=== PATIENT | female | born 1990 | race Caucasian/White ===

== ENCOUNTER 2023-02-17 08:34 | Outpatient (CLI) | payer OTHER, SELFPAY ==
--- NOTE | 2023-02-17 08:45 | CRLHL7_ITS ---
For Patients: As a result of the Century Cures Act, medical imaging exams and procedure reports are released immediately into your electronic medical record. You may view this report before your referring provider. If you have questions, please contact your health care provider. LEFT DIGITAL DIAGNOSTIC MAMMOGRAM WITH TOMOSYNTHESIS AND COMPUTER-AIDED DETECTION LEFT BREAST ULTRASOUND INDICATION: 33-year-old female. Pain and fullness lower outer quadrant LEFT breast for two weeks. No personal or family history of breast cancer biopsies. TECHNIQUE: CC and MLO views were obtained. This digital study was evaluated with the assistance of computer-aided detection. Digital breast tomosynthesis utilized in interpretation. FINDINGS: Breast composition: Scattered fibroglandular densities. No underlying mass. No architecture distortion. No suspicious microcalcifications. Ultrasound will be performed for further evaluation of the focal breast pain and fullness in the lower outer quadrant. Please see breast ultrasound from the same date. Negative unilateral LEFT breast mammogram. ULTRASOUND: Directed LEFT breast ultrasound with this radiologist present. The LEFT breast is carefully scanned between the 3 o`clock and 6 o`clock position. Roller Embosser images obtained at the 5 o`clock position 3 cm from the nipple. Only normal breast tissue is identified. No underlying mass. No architecture distortion. No shadowing. These findings were discussed in detail with the patient. Annual mammography is recommended beginning at age 40. IMPRESSION: Negative unilateral LEFT breast mammogram. Negative LEFT breast ultrasound. BI-RADS Category 1: Negative A lay language report of this examination will be provided to the patient. Dictated by: Jefry Bonilla MD @02/17/2023 9:59:30 AM JR/Dictated by: Jfery Bonilla MD @ 02/17/2023 9:59:00 AM (Electronically Signed)
--- NOTE | 2023-02-17 09:15 | CRLHL7_ITS ---
For Patients: As a result of the Century Cures Act, medical imaging exams and procedure reports are released immediately into your electronic medical record. You may view this report before your referring provider. If you have questions, please contact your health care provider. PLEASE SEE LEFT BREAST DIAGNOSTIC MAMMOGRAM FOR BOTH MAMMOGRAM AND BREAST ULTRASOUND REPORT IN [facility]. JR/Dictated by: Jefry Bonilla MD @ 02/17/2023 9:59:00 AM (Electronically Signed)
== END 2023-02-17 08:35 | disposition home or self-care (01) ==
LOC: MAMMO 08:34
PROVIDERS: Visit Provider Nurse Practitioner Family
DX: N64.4 Mastodynia (principal); N63.20 Unspecified lump in the left breast, unspecified quadrant
CPT/HCPCS: 76642; 77065; G0279